=== PATIENT | female | born 1980 | race American Indian/Alaskan Native ===

== ENCOUNTER 2019-04-19 08:05 | Outpatient (CLI) | payer BC ==
--- NOTE | 2019-04-20 08:50 | Magnetic Resonance Report ---
BILATERAL BREAST MR WITHOUT AND WITH GADOLINIUM INDICATION: History of biopsy-proven papillomas. She had ultrasound-guided biopsy of 2 left breast m asses and one right breast mass on 05/22/2016 at [facility]. Pathology revealed intraductal papillo ma and surgical excision of these lesions was recommended. At that time it was also noted that there were 2 additional lesions in the left breast which had similar morphology and for which surgical exci vi was recommended. Surgical excisions have not been performed. COMPARISONS: 02/25/2019 [facility] screening mammogram and 05/17/2016, 04/03/2016 and 04/07/2015 ammograms and ultrasounds from [facility]. TECHNIQUE: Axial 1.0 mm T1 without, axial high-resolution 2.0 mm T2 and axial 1.0 mm dynamic vibrant high-resolution postcontrast T1 fat saturation sequences on a 1.5 Belkys magnet. The examination was p erformed with an 8-channel dedicated Sentinelle breast coil. Post-processing with CAD and subtraction was performed on an [employer] workstation. 14.0 cc of MultiHance was injected without incident for the c ontrast portion of the exam. Consent was obtained prior to the administration of the contrast. FINDINGS: RIGHT BREAST: Marked background parenchymal enhancement. Lesion 1 is an irregular mass in the upper o uter quadrant 3 cm from the nipple measuring 1.9 x 1.8 x 1.7 cm. It contains a biopsy clip and correl ates with the previously biopsied papilloma. It demonstrates heterogeneous enhancement with mixed kin etics, rapid initial enhancement, 162% peak enhancement and 39% type III washout. Lesion 2 is an oval enhancing mass in the lower inner quadrant 6 cm from the nipple measuring 5.7 x 4.0 x 3.2 mm. It dem onstrates heterogeneous enhancement with mixed kinetics, medium initial enhancement, 84% peak enhance ment and 50% type III washout. No other suspicious lesions of the right breast. No suspicious right a xillary or right internal mammary lymph nodes. LEFT BREAST: Marked background parenchymal enhancement. Lesion 3 is an irregular enhancing mass in th e upper outer quadrant 7.5 cm from the nipple measuring 4.7 x 4.1 x 3.3 mm. It demonstrates heterogen eous enhancement with mixed kinetics, rapid initial enhancement, 148% peak enhancement and 40% type I II washout. Lesion 4 is an irregular enhancing mass in the upper inner quadrant 3.3 cm from the nippl e measuring 1.8 x 1.3 x 1.3 cm. It demonstrates heterogeneous enhancement with mixed kinetics, rapid initial enhancement, 206% peak enhancement and 18% type III washout. A portion of the mass has a cyst ic component. Lesion 5 is a relatively central irregular enhancing mass 5 cm from the nipple measurin g 1.3 x 1.3 x 0.8 cm. It demonstrates heterogeneous enhancement with mixed kinetics, rapid initial en hancement, 125% peak enhancement and 14% type III washout. Lesion 6 is a complex lesion with an irreg ular enhancing component as well as a large cystic component. It is located in the upper inner quadra nt approximately 5 cm from the nipple and measures 2.7 x 2.2 x 2.7 cm. The lesion is predominantly cy stic. The solid irregular enhancing component measures 10.4 x 7.6 x 6.5 mm. Demonstrates heterogeneou s enhancement with mixed kinetics, rapid initial enhancement, 111% peak enhancement, 76% type I persi stent, 24% type II plateau an 0% type III washout. There are at least 3 additional smaller similar en hancing lesions of the left breast. No suspicious left axillary or left internal mammary lymph nodes. IMPRESSION: 1. A 2 cm right breast mass 3 cm from the nipple (Lesion 1) correlates with a previously confirmed in traductal papilloma. However, it has suspicious MRI features and surgical excision is recommended. 2. Lesion 2 of the right breast is probably benign. Recommend targeted ultrasound and MRI follow-up i f it is not identified by ultrasound. 3. Lesion 3 of the left breast is a suspicious 4.7 mm mass. Recommend targeted ultrasound and biopsy if it can be identified by ultrasound. 4. Lesion 4 of the left breast correlates with a previously confirmed intraductal papilloma. However, it has suspicious MRI features and surgical excision is recommended. 5. Lesion 5 of the left breast has suspicious features and it apparently has not been biopsied. This lesion is apparent on the most recent mammogram. Recommend targeted ultrasound and biopsy. 6. Lesion 6 of the left breast is a complex suspicious lesion which is apparent on the recent mammogr am and measures 4.4 cm on the mammogram. Recommend targeted ultrasound and biopsy. 7. At least 3 additional subcentimeter masses of the left breast have similar morphology and enhancem ent characteristics suggestive of papillomas. Recommend surveillance with MRI in one year. BI-RADS Category 4: Suspicious Signer Name: Anam Montanez MD Signed: 04/20/2019 8:45 AM Workstation Name: [id number]
== END 2019-04-19 08:06 | disposition home or self-care (01) ==
LOC: SPVIMAG 08:05
PROVIDERS: ATTEND Surgery
DX: N63.21 Unspecified lump in the left breast, upper outer quadrant (principal); N63.11 Unspecified lump in the right breast, upper outer quadrant; N63.24 Unspecified lump in the left breast, lower inner quadrant; N63.14 Unspecified lump in the right breast, lower inner quadrant
CPT/HCPCS: A9577; C8908; 77049

== ENCOUNTER 2019-05-20 08:23 | Outpatient (CLI) | payer BC ==
--- NOTE | 2019-05-20 09:35 | Ultrasound Report ---
BILATERAL LIMITED BREAST ULTRASOUND INDICATION: Findings noted in both breast on recent MRI, patient with known biopsy-proven papillomas in both breasts on outside biopsies. COMPARISON: 04/19/2019, 02/25/2019. FINDINGS: A targeted ultrasound focused in the right lower inner breast was performed to evaluate the site of a focal area of enhancement seen on the recent breast MRI. There is a circumscribed oval hypoechoic so lid-appearing 5 x 2 x 4 mm lesion at the 4:00 position, 5 cm from the nipple. This would appear to co rrespond to the enhancing lesion seen on the breast MRI. An ultrasound-guided biopsy is recommended. A targeted ultrasound of the left superior and central breast was performed to evaluate the three enh ancing lesions seen on the recent breast MRI. Sonographic correlate are identified as follows: -5 x 3 x 5 mm circumscribed solid-appearing hypoechoic oval mass at the 1:00 position, 4 cm from the nipple. -13 x 8 x 12 mm complex cystic and solid mass in the left 12:00 retroareolar breast. -32 x 24 x 30 mm complex cystic and solid mass in the left breast at the 10:00 position, 4 cm from th e nipple. These three lesions appear to correspond with the areas of suspicious enhancement noted on the recent breast MRI. An ultrasound-guided biopsy of each is recommended. IMPRESSION: Suspicious right breast mass at the 4:00 position for which ultrasound-guided biopsy is recommended. Additionally, there are three suspicious masses in the left breast which correspond with findings see n on the recent breast MRI. An ultrasound-guided biopsy of each of these is recommended. BI-RADS Category 4: Suspicious for Malignancy. Signer Name: Kj Weber MD Signed: 05/20/2019 9:30 AM Workstation Name: [id number]
== END 2019-05-20 08:24 | disposition home or self-care (01) ==
LOC: SPVWC 08:23
PROVIDERS: ATTEND Surgery
DX: N60.02 Solitary cyst of left breast (principal); N63.22 Unspecified lump in the left breast, upper inner quadrant; N63.42 Unspecified lump in left breast, subareolar; N64.89 Other specified disorders of breast; R92.2 Inconclusive mammogram; Z80.3 Family history of malignant neoplasm of breast

== ENCOUNTER 2019-05-26 13:25 | Outpatient (CLI) | payer BC ==
--- NOTE | 2019-05-26 15:30 | Ultrasound Report ---
ULTRASOUND-GUIDED NEEDLE CORE BIOPSY RIGHT BREAST WITH CLIP PLACEMENT CLINICAL: A suspicious lesion at 4:00 5 cm from the nipple which appears to correlate with a mass by MRI. FINDINGS: The procedure was explained to the patient and informed consent was obtained. Ultrasound demonstrated the previously identified 5 mm mass. I marked the breast with a felt tip marker and a timeout was called. The skin was prepped with Chloro -Prep and anesthetized with 1% lidocaine. Needle core biopsy was performed through small dermatotomy using ultrasound guidance, 2% lidocaine wi th epinephrine for deep anesthesia and a 14-gauge Achieve biopsy device. 4 cores were obtained and pl aced in formalin. A clip was deployed within the lesion. The patient tolerated the procedure well and there were no apparent complications. Hemostasis was ach ieved with minimal effort and a sterile dressing was applied. A post procedure mammogram demonstrated concordant clip deployment. She left the department in good c ondition and was given instructions for wound care and follow-up. IMPRESSION: Uncomplicated ultrasound guided needle core biopsy with clip placement at 4:00 5 cm from the nipple right breast. Signer Name: Aanm Montanez MD Signed: 05/26/2019 3:26 PM Workstation Name: [id number]
--- NOTE | 2019-05-26 15:32 | Mammography Report ---
RIGHT DIGITAL DIAGNOSTIC MAMMOGRAM CLINICAL: For clip placement after ultrasound-guided needle biopsy. COMPARISON: 05/20/2019 ultrasound FINDINGS: A U-shaped biopsy clip is identified at 3:30 to 4:00 and is concordant with the lesion iden tified by ultrasound at 4:00 5 cm from the nipple. IMPRESSION: Concordant clip deployment. Signer Name: Anam Montanez MD Signed: 05/26/2019 3:28 PM Workstation Name: [id number]
== END 2019-05-26 13:26 | disposition home or self-care (01) ==
LOC: SPVWC 13:25
PROVIDERS: ATTEND Surgery
DX: N63.14 Unspecified lump in the right breast, lower inner quadrant (principal); R92.8 Other abnormal and inconclusive findings on diagnostic imaging of breast
CPT/HCPCS: 88305; 88341; 88342

== ENCOUNTER 2019-06-08 12:59 | Outpatient (CLI) | payer BC ==
--- NOTE | 2019-06-08 14:37 | Mammography Report ---
DIGITAL DIAGNOSTIC MAMMOGRAM WITH CAD, 06/08/2019 INDICATION: Immediately status post ultrasound-guided needle biopsy at 3 sites left breast -Post clip Lt TECHNIQUE: Digital left mammographic imaging was performed. This examination was interpreted with the benefit of Computer-aided Detection analysis. COMPARISON: 02/25/2019 FINDINGS: Breast Density: The breasts are heterogeneously dense, which may obscure small masses. New biopsy clips are identified at 1:00 approximately 4 cm from the nipple, 12:00 retroareolar approx imately 6 cm from the nipple and 10:00 6 cm from the nipple. IMPRESSION: Concordant clip deployment at 1:00, 12:00 and 10:00. Follow up recommendation: Clinical exam Post biopsy imaging. A "normal" or negative report should not discourage follow up or biopsy of a clinically significant f inding. A written summary of these findings will be mailed to the patient. The patient will be entered into a mammography reporting system which will generate a reminder letter for the patient's next appointmen t at the appropriate interval. According to the [employer], yearly mammograms are recommended starting at age 40 and continuing as long as a woman is in good health. Breast MRI is recommended for women with an chino roximately 20-25% or greater lifetime risk of breast cancer, including women with a strong family his tory of breast or ovarian cancer and women who have been treated for Hodgkin's disease. Signer Name: Anam Montanez MD Signed: 06/08/2019 2:32 PM Workstation Name: [id number]
--- NOTE | 2019-06-08 15:25 | Ultrasound Report ---
ULTRASOUND-GUIDED VACUUM-ASSISTED NEEDLE CORE BIOPSY AT 2 SITES LEFT BREAST WITH CLIP PLACEMENT AND ULTRASOUND-GUIDED NEEDLE CORE BIOPSY LEFT BREAST WITH CLIP PLACEMENT CLINICAL: History of papillomas. 3 suspicious left breast masses based on both MRI and ultrasound. FINDINGS: The procedure was explained to the patient and informed consent was obtained. Ultrasound demonstrated the previously identified lesions at 1:00, 12:00 and 10:00.. I marked the breast with a felt tip marker and a timeout was called. The skin was prepped with Chloro -Prep and anesthetized with 1% lidocaine 3 sites. Ultrasound-guided needle core biopsy was performed through tiny dermatotomy at 1:00 4 cm from the nip ple using 2% lidocaine with epinephrine for deep anesthesia. 3 cores were obtained with a 14-gauge Ac hieve biopsy device. A localizer clip was deployed within the lesion. Vacuum-assisted needle core biopsy was performed through tiny dermatotomy at 12:00 retroareolar. Usin g ultrasound guidance, 2% lidocaine with epinephrine for deep anesthesia and a 13-gauge Mammotome Marizol te biopsy device, multiple cores were obtained and placed in formalin. A HydroMark clip was deployed within the lesion. Vacuum-assisted needle core biopsy was performed through tiny dermatotomy at 10:00 4 cm from the nipp le. Using ultrasound guidance, 2% lidocaine with epinephrine for deep anesthesia and a 13-gauge Mammo tome Elite biopsy device, multiple cores were obtained and placed in formalin. This complex predomina ntly cystic lesion showed complete collapse with the biopsy. A HydroMark clip was deployed within th e lesion. The patient tolerated the procedure well and there were no apparent complications. Hemostasis was ach ieved with minimal effort and sterile dressings were applied. A post procedure mammogram demonstrated concordant clip deployment at 3 sites. Mammographic lesions a t 12:00 and 10:00 showed near complete resolution. She left the department in good condition and was given instructions for wound care and follow-up. IMPRESSION: Uncomplicated ultrasound guided needle core biopsy with clip placement left breast. Signer Name: Anam Montanez MD Signed: 06/08/2019 3:21 PM Workstation Name: [id number]
== END 2019-06-08 13:00 | disposition home or self-care (01) ==
LOC: SPVWC 12:59
PROVIDERS: ATTEND Surgery
DX: N63.21 Unspecified lump in the left breast, upper outer quadrant (principal); N63.22 Unspecified lump in the left breast, upper inner quadrant; D24.2 Benign neoplasm of left breast; R92.8 Other abnormal and inconclusive findings on diagnostic imaging of breast
CPT/HCPCS: 88305

== ENCOUNTER 2020-03-02 13:58 | Outpatient (CLI) | payer BC ==
--- NOTE | 2020-03-02 15:21 | Mammography Report ---
DIGITAL SCREENING MAMMOGRAM WITH CAD, 03/02/2020 CLINICAL INFORMATION / INDICATION: Routine screening mammography. TECHNIQUE: Digital bilateral 2D mammography was obtained in the craniocaudal and mediolateral obliqu e projections. This examination was interpreted with the benefit of Computer-Aided Detection analysis . COMPARISON: 06/08/2019, 05/26/2019, 02/25/2019 FINDINGS: Breast Density: The breasts are heterogeneously dense, which may obscure small masses. No dominant mass, suspicious calcifications, or architectural distortion in the right breast. In the 12:00 anterior depth of the left breast at the site of prior lumpectomy is a residual versus recurren t mass measuring 1.5 x 1.3 cm. No other significant abnormality of the left breast. IMPRESSION: Residual/recurrent mass in the left breast as above. A left breast ultrasound is recommen ded for further evaluation. Follow up recommendation: Ultrasound BI-RADS Category 0: Incomplete. Needs additional imaging evaluation and/or prior mammograms for vivek rison. A "normal" or negative report should not discourage follow up or biopsy of a clinically significant f inding. A written summary of these findings will be mailed to the patient. The patient will be entered into a mammography reporting system which will generate a reminder letter for the patient's next appointmen t at the appropriate interval. The [employer] recommends yearly mammograms starting at age 40 and continuing as l walker as a woman is in good health. Breast MRI is recommended for women with an approximate 20-25% or greater lifetime risk of breast cancer, including women with a strong family history of breast or ova fernando cancer or who have been treated for Hodgkin's disease. Signer Name: Romel Torres MD Signed: 03/02/2020 3:17 PM Workstation Name: [id number]
== END 2020-03-02 13:59 | disposition home or self-care (01) ==
LOC: SPVWC 13:58
PROVIDERS: ATTEND Surgery
DX: Z12.31 Encounter for screening mammogram for malignant neoplasm of breast (principal)
CPT/HCPCS: 77063; 77067

== ENCOUNTER 2020-04-11 15:35 | Outpatient (CLI) | payer BC ==
--- NOTE | 2020-04-11 17:04 | Ultrasound Report ---
LEFT DIGITAL DIAGNOSTIC MAMMOGRAM WITH CAD CONVENTIONAL, 04/11/2020 LEFT LIMITED BREAST ULTRASOUND CLINICAL INFORMATION / INDICATION: History of left lumpectomy in October 2019, recent history of abnorma l mammogram TECHNIQUE: Digital left mammographic imaging was performed. Spot compression views were obtained. King ited ultrasound was performed. This examination was interpreted with the benefit of Computer-Aided De tection (CAD) analysis. COMPARISON: Bilateral mammogram 02/25/2019, left mammogram 06/08/2019, left breast needle localization images 11/03/2019, bilateral breast ultrasound 05/20/2019 FINDINGS: Breast Density: The breasts are heterogeneously dense, which may obscure small masses. MAMMOGRAPHIC FINDINGS: The previous present hematoma measuring 4.2 cm just above the level of the nip ple is no longer obvious though a small density is seen in this area measuring 16 mm which is the foc us of the investigation today based on screening mammography of 03/02/2020. The small density persist s on spot compression views and is directly anterior to a remaining biopsy clip. 2 of the prior biops y clips seen before surgery remain. Immediately prior to surgery, a 16 mm ovoid density was present i n this area and by my measurements has not changed significantly. Spot compression views today do not show a significant difference from the recent study. ULTRASOUND FINDINGS: Targeted ultrasound evaluation was performed of the area of interest. In the a gilma of the surgical scar there is a fairly superficial 2.6 cm residual seroma/hematoma. Slightly more posteriorly at 12:00 is an ovoid fairly well-defined hypoechoic area with moderate internal echoes b ut without vascularity or shadowing. This is in the general area of the nodular density seen on ultra sound in April but also corresponds reasonably well with the residual radiographic abnormality disc ussed above. Maximal diameter by my measurement is approximately 13 mm and maximal diameter in Januar y was also 13 mm. IMPRESSION: Complicated situation as discussed above. Mammographically there is a small ovoid assista nt density near a biopsy clip in the 11:30 to 12:00 retroareolar region which by my measurements does not appear to be changed from a study in April. This may correspond to is similar sized ovoid hypo echoic area also noted in April, also without change. This has some internal echoes but could be a complicated cystic area rather than a solid lesion and demonstrates no vascularity or shadowing. The apparent lack of change would argue for benign process. A postoperative hematoma/seroma is demonstrat ed in the adjacent tissue. Follow up recommendation: Follow-up mammogram and ultrasound on the left in 6 months. Alternatively, MR could be performed to further assess this area. BI-RADS Category 3: Probably Benign. Followup in 6 months. A "normal" or negative report should not discourage follow up or biopsy of a clinically significant f inding. A written summary of these findings will be mailed to the patient. The patient will be entered into a mammography reporting system which will generate a reminder letter for the patient's next appointmen t at the appropriate interval. According to the [employer], yearly mammograms are recommended starting at age 40 and continuing as long as a woman is in good health. Breast MRI is recommended for women with an chino roximately 20-25% or greater lifetime risk of breast cancer, including women with a strong family his tory of breast or ovarian cancer and women who have been treated for Hodgkin's disease. Signer Name: Parker Abreu MD Signed: 04/11/2020 4:59 PM Workstation Name: [id number]
== END 2020-04-11 15:36 | disposition home or self-care (01) ==
LOC: SPVWC 15:35
PROVIDERS: ATTEND Surgery
DX: R92.2 Inconclusive mammogram (principal); N64.89 Other specified disorders of breast

== ENCOUNTER 2020-05-24 14:55 | Outpatient (CLI) | payer BC ==
--- NOTE | 2020-05-24 16:47 | Magnetic Resonance Report ---
Bilateral breast MR without and with contrast. History: Patient at high risk for breast malignancy, personal history of multiple bilateral papilloma s. Comparison: 04/11/2020, 03/02/2020, 04/19/2019. Technique: Multiplanar multisequence MR images of the breast were obtained before and after the intra venous administration of 15 mL of MultiHance contrast agent. Post processing analysis and review was performed on a separate computer workstation. Findings: Breast composition is heterogeneously dense. There is moderate background parenchymal enhancement tahira aterally which along with the presence of multiple scattered enhancing foci decreases the sensitivity of MRI. LEFT BREAST: Located within the left breast at the 11:00 to 12:00 position is a heterogeneously enhan cing 1.2 x 1.1 x 1.2 cm mass. This would appear to correspond with the finding seen on the recent ult rasound performed 04/11/2020. Given its enhancement and solid component, an ultrasound-guided biopsy of this is recommended. Multiple additional scattered enhancing foci are present throughout the left breast and overall show little change compared to 2019 MRI. Postsurgical changes in the left breast a re noted with a 2.8 x 2.1 x 2.1 cm hematoma in the left upper inner breast. RIGHT BREAST: Located within the slightly lateral far posterior right breast is a 1.5 x 0.9 x 1 cm lo bulated enhancing lesion. This is best seen on 597/944. Within the right upper outer posterior breast is an area of non masslike enhancement which measures up to 4.5 x 2.4 x 3.1 cm (image [id number]). Mil d postsurgical changes in the left medial breast. Multiple scattered areas of additional enhancing fo ci are present throughout the right breast which decreases sensitivity, however these show little daniel nge compared to prior MRI. No abnormal axillary or internal mammary lymph nodes. Impression: Located within the left breast at the 11:00 to 12:00 position is a 1.2 cm heterogenously enhancing ma ss. This would appear to correspond to the ultrasound finding seen on 04/11/2020 exam. Given its enha ncing solid component, an ultrasound-guided biopsy is recommended. Located within the right slightly lateral far posterior breast is a 1.5 cm lobulated enhancing lesion . A targeted ultrasound is recommended for further evaluation with ultrasound-guided biopsy if a sono graphic correlate is identified. If no sonographic correlate is identified, an MRI guided biopsy is r ecommended. There is a 4.5 cm area of suspected non masslike enhancement within the right upper outer posterior b reast. A targeted ultrasound is recommended focused from the 10:00 to the 11:00 position 10 cm from t he nipple. If a sonographic correlate is identified, an ultrasound-guided biopsy is recommended. If n o sonographic correlate is identified, an MRI guided biopsy is recommended. BIRADS 0: Incomplete--Needs Additional Imaging Evaluation. A normal MRI does not exclude the presence of some forms of breast malignancy as literature reports s uggest that some forms of ductal carcinoma in situ or lobular carcinoma, particularly, may not be det ected on MRI. The sensitivity and specificity of MRI for cancers under 5 mm may be reduced. MRI does not replace the recommendation for annual conventional mammographic evaluation and should be used as an adjunct to mammography and physical examination as necessary. Signer Name: Kj Weber MD Signed: 05/24/2020 4:42 PM Workstation Name: [id number]
== END 2020-05-24 14:56 | disposition home or self-care (01) ==
LOC: SPVIMAG 14:55
PROVIDERS: ATTEND Surgery
DX: N63.42 Unspecified lump in left breast, subareolar (principal); N63.22 Unspecified lump in the left breast, upper inner quadrant; N60.82 Other benign mammary dysplasias of left breast; N60.81 Other benign mammary dysplasias of right breast; Z80.3 Family history of malignant neoplasm of breast
CPT/HCPCS: A9577; C8908; 77049

== ENCOUNTER 2020-06-14 09:44 | Outpatient (CLI) | payer BC ==
--- NOTE | 2020-06-14 12:07 | Mammography Report ---
LEFT DIAGNOSTIC MAMMOGRAM INDICATION: Left breast lesion at the 11:00 position for which ultrasound-guided biopsy has been robert mmended. COMPARISON: 05/24/2020, 04/11/2020. FINDINGS: Left breast CC and LM projection mammograms were obtained. These document accurate location of a U-shaped biopsy marker in the left breast at the 11:00 position (site of recent ultrasound-guid ed core biopsy). IMPRESSION: Left breast mammograms documenting accurate location of a U-shaped biopsy marker at site of recent bi opsy at the 11:00 position. BI-RADS Category 4: Suspicious for Malignancy. Signer Name: Kj Weber MD Signed: 06/14/2020 12:02 PM Workstation Name: [id number]
--- NOTE | 2020-06-14 12:21 | Ultrasound Report ---
RIGHT BREAST ULTRASOUND INDICATION: Evaluate findings noted in the right breast on the recent MRI. COMPARISON: 05/24/2020, 04/19/2019. FINDINGS: A targeted ultrasound of the right upper outer breast was performed to evaluate an area of non masslike enhancement seen on the recent breast MRI. Located at the 10:00 position, 11 cm from the nipple, are a few vague hypoechoic areas surrounded by what appears to be dense fibroglandular tissu e. This measures up to 3.5 x 1.3 x 2.9 cm and would appear to correspond with the location of the abn ormal enhancement seen on the recent breast MRI. Of note, the MRI also showed a few small cysts in th is area and this may represent an area of fibrocystic change. An ultrasound-guided core biopsy is rec ommended for further evaluation. Additionally, a targeted ultrasound of the right lateral central breast was performed to evaluate a f ocal area of enhancement seen on the recent breast MRI. Located at the 8:30 position, 6 cm from the n ipple, is a 5 x 3 x 3 mm hypoechoic lesion located at the 8:30 position, 6 cm from the nipple. This w ould appear to correspond with the location of the finding seen on the recent breast MRI. The size on ultrasound does measure smaller, however it is difficult to definitively measure given its relativel y deep position. An ultrasound-guided core biopsy of this is recommended. Incidentally noted are two benign-appearing lesions including a 7 mm lesion in the right breast at th e 8:00 position, 3 cm from the nipple. This appears stable compared to older imaging. Additionally, a mildly complicated cyst measuring up to 8 mm in the right breast at the 10:00 position, 8 cm from n ipple, is also noted. This showed no abnormal enhancement on MRI. This was beneficial in using as a l andmark when identifying the sonographic correlate to the non masslike enhancement.. IMPRESSION: Right breast lesion at the 10:00 position appears to correspond with an area of non masslike enhancem ent seen on recent breast MRI. This may represent an area of fibrocystic change. An ultrasound guided core biopsy is recommended for confirmation. Right breast lesion at the 8:30 position appears to correspond with an area of abnormal enhancement s een on recent breast MRI. Ultrasound-guided core biopsy is recommended. These findings and recommendations were discussed with the patient at the conclusion of the exam. BI-RADS Category 4: Suspicious for Malignancy. Signer Name: Kj Weber MD Signed: 06/14/2020 12:16 PM Workstation Name: [id number]
--- NOTE | 2020-06-14 12:41 | Ultrasound Report ---
ULTRASOUND-GUIDED CORE NEEDLE BIOPSY Left BREAST WITH CLIP PLACEMENT INDICATION: Left breast lesion at the 11:00 position. FINDINGS: Informed consent was obtained. The lesion within the left breast at the 11:00 position, 2 cm from the nipple, was identified with ultrasound. The overlying skin was cleansed with chloro prep and local a nesthesia was obtained with a 1% lidocaine solution. Under ultrasound guidance a 14-gauge spring load ed core biopsy needle was advanced to the lesion. A total of 4 core samples were obtained. A U-shaped biopsy marker was placed to mayelin the site of the biopsy. Specimen samples were placed in formalin an d sent to pathology for analysis. Patient tolerated the procedure well and no immediate complications were identified. A post procedure mammogram demonstrates accurate placement of the biopsy marker. IMPRESSION: Technically successful ultrasound-guided core biopsy of left breast lesion at the 11:00 position with accurate placement of a U-shaped biopsy marker. An addendum will be added to this report once pathology results are available. Signer Name: Kj Weber MD Signed: 06/14/2020 12:37 PM Workstation Name: [id number]
== END 2020-06-14 09:45 | disposition home or self-care (01) ==
LOC: SPVWC 09:44
PROVIDERS: ATTEND Surgery
DX: N63.22 Unspecified lump in the left breast, upper inner quadrant (principal); N64.89 Other specified disorders of breast; E66.9 Obesity, unspecified; Z87.440 Personal history of urinary (tract) infections; Z79.899 Other long term (current) drug therapy; Z98.890 Other specified postprocedural states
CPT/HCPCS: 88305

== ENCOUNTER 2020-07-11 09:52 | Outpatient (CLI) | payer BC ==
--- NOTE | 2020-07-11 12:45 | Ultrasound Report ---
ULTRASOUND-GUIDED CORE NEEDLE BIOPSY of 2 areas in the right BREAST WITH CLIP PLACEMENT INDICATION: 2 right breast lesions. FINDINGS: Informed consent was obtained. The lesion within the right breast at the 10:00 position, 11 cm from t he nipple, was identified with ultrasound. Initially, the sonographers recorded images of a cystic le vi at the 10:00 position, 8 cm from the nipple, however this was not the target of the biopsy. The overlying skin was cleansed with chloro prep and local anesthesia was obtained with a 1% lidocaine so lution. Under ultrasound guidance a 14-gauge spring loaded core biopsy needle was advanced to the les ion. A total of 5 core samples were obtained. A U-shaped biopsy marker was placed to mayelin the site of the biopsy. Specimen samples were placed in formalin and sent to pathology for analysis. The lesion within the right breast at the 8:30 position, 6 cm from the nipple, was identified with ul trasound. The overlying skin was cleansed with chloro prep and local anesthesia was obtained with a 1 % lidocaine solution. Under ultrasound guidance a 14-gauge spring loaded core biopsy needle was advan ezekiel to the lesion. A total of 4 core samples were obtained. A biopsy marker was placed to mayelin the si te of the biopsy. Specimen samples were placed in formalin and sent to pathology for analysis. Patient tolerated the procedure well and no immediate complications were identified. A post procedure mammogram demonstrates biopsy markers in the expected locations, although a mammographic correlate w as never identified. IMPRESSION: Technically successful ultrasound guided core biopsy of right breast lesion at the 8:30 position with placement of a biopsy marker. Technically successful ultrasound-guided core biopsy of right breast lesion at the 10:00 position wit h placement of a U-shaped biopsy marker. An addendum will be added to this report once pathology results are available. Signer Name: Kj Weber MD Signed: 07/11/2020 12:40 PM Workstation Name: [id number]
--- NOTE | 2020-07-11 12:47 | Mammography Report ---
RIGHT DIAGNOSTIC MAMMOGRAM INDICATION: Status post ultrasound guided core biopsy of 2 right breast lesions. COMPARISON: 06/14/2020, 05/24/2020. FINDINGS: Right breast CC and LM projection mammograms were obtained. These demonstrate a coil shaped biopsy marker in the right breast at the 8:30 position and U-shaped biopsy marker in the right breas t at the 10:00 position. These are in the expected locations of the recent ultrasound-guided core bio psies. IMPRESSION: Right breast mammograms documenting accurate location of biopsy markers status post ultrasound guided core biopsies at the 8:30 position and 10:00 positions. BI-RADS Category 4: Suspicious for Malignancy. Signer Name: Kj Weber MD Signed: 07/11/2020 12:43 PM Workstation Name: [id number]
== END 2020-07-11 09:53 | disposition home or self-care (01) ==
LOC: SPVWC 09:52
PROVIDERS: ATTEND Surgery
DX: N63.11 Unspecified lump in the right breast, upper outer quadrant (principal); N62 Hypertrophy of breast; N60.81 Other benign mammary dysplasias of right breast; N64.89 Other specified disorders of breast; E66.9 Obesity, unspecified; Z85.3 Personal history of malignant neoplasm of breast; Z79.899 Other long term (current) drug therapy; Z87.440 Personal history of urinary (tract) infections; Z98.890 Other specified postprocedural states; Z68.30 Body mass index [BMI] 30.0-30.9, adult
CPT/HCPCS: 19083; 19084; 77065; 88305; A4648

== ENCOUNTER 2020-12-19 13:59 | Outpatient (CLI) | payer BC ==
--- NOTE | 2020-12-19 16:13 | Magnetic Resonance Report ---
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 Patient presents for high-risk screening breast MRI secondary to family history of breast cancer. 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 TECHNIQUE: Axial T1 and T2-weighted fat sat images were obtained precontrast. Gadolinium-based contra st was injected intravenously and serial axial T1 weighted images with fat saturation were obtained. 3-D MIP projections, kinetic analysis, and subtraction imaging were utilized to evaluate. A dedicated 8-channel breast coil was used for image acquisition. COMPARISON: Prior mammogram 03/02/2020 and breast MRI 05/24/2020 FINDINGS: BREAST DENSITY: There are scattered areas of fibroglandular density. BACKGROUND ENHANCEMENT: Moderate background enhancement within both breasts. RIGHT BREAST: No dominant mass or suspicious area of enhancement in the right breast. There are multi ple stable benign-appearing oval circumscribed masses throughout the right breast with increased T2 s ignal, the largest in the posterior 6:00 position measuring up to 1.4 cm. Additionally, there is unch anged nonmass enhancement in the upper outer quadrant of the right breast. A new biopsy clip is seen within this area of nonmass enhancement, compatible with prior benign biopsy site. There is benign po stsurgical change seen in the 3:00 right breast. LEFT BREAST: No dominant mass or suspicious area of enhancement in the left breast. There is benign p ostsurgical change seen in the upper inner quadrant of the left breast. An adjacent oval circumscribe d mass now contains a biopsy clip, compatible with prior benign biopsy site. There are multiple subce ntimeter benign appearing circumscribed nodules throughout the left breast. There has been no signifi cant change compared with the prior examination. AXILLAE: No pathologically enlarged axillary lymph nodes. ADDITIONAL FINDINGS: Limited imaging of the thorax and upper abdomen demonstrates no focal abnormalit y. IMPRESSION: 1. No suspicious MRI abnormality identified in either breast. Benign findings in both breasts as deta iled above. Follow up recommendation: Back to schedule. BI-RADS Category 2: Benign. Signer Name: Stacy Barros MD Signed: 12/19/2020 4:09 PM Workstation Name: [id number]
== END 2020-12-19 14:00 | disposition home or self-care (01) ==
LOC: SPVIMAG 13:59
PROVIDERS: ATTEND Surgery
DX: N60.82 Other benign mammary dysplasias of left breast (principal); N60.81 Other benign mammary dysplasias of right breast; Z80.3 Family history of malignant neoplasm of breast
CPT/HCPCS: A9575; C8908; 77049